=== PATIENT | female | born 1960 | race Caucasian/White ===

== ENCOUNTER → 2025-07-14 08:45 | Outpatient (REF) | payer BC, SELFPAY ==
[2025-07-14 09:30] LABS: INR 0.89; PT 12.6 Sec (11.4-14.6)
== END ==
LOC: RAD 08:45
PROVIDERS: ATTENDING PHYSICIAN Nurse Practitioner Family; FAMILY PHYSICIAN Family Medicine; OTHER PHYSICIAN Physician Assistant
DX: G57.71 Causalgia of right lower limb (principal); Z01.812 Encounter for preprocedural laboratory examination; Z01.818 Encounter for other preprocedural examination
CPT/HCPCS: 36415; 62303; 72128; 85610